=== PATIENT | male | born 1995 | race Caucasian/White ===

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

== ENCOUNTER 2018-06-26 17:41 | Observation (INO) | payer OTHER ==
[2018-06-26 20:19] LABS: ABS Basophils 0 10^3/ul (0-0.2); ABS Eosinophils 0.1 10^3/ul (0-0.6); ABS Monocytes 0.6 10^3/ul (0-0.8); ABS Neutrophils 3.8 10^3/ul (1.5-7.7); ABS Nucleated RBC 0 10^3/ul; Eosinophil % 1.9 %; Hematocrit 47 % (42-52); Hemoglobin 15.8 g/dl (14.0-18.0); Lymphocyte % 30.8 %; Mean Corpuscular HGB Conc 34 g/dl (31-36); Mean Corpuscular Hemoglobin 30 pg (27-31); Mean Corpuscular Volume 90 fL (80-94); Mean Platelet Volume 7.7 fL (7.4-10.4); Nucleated Red Blood Cells % 0; Platelet Count 201 10^3/ul (150-450); Red Blood Count 5.27 10^6/ul (4.00-5.40); Red Cell Distribution Width 13 % (10.5-15); White Blood Count 6.5 10^3/ul (3.5-10.8)
[2018-06-26 20:39] LABS: Albumin/Globulin Ratio 2.1 (1-3); BUN/Creatinine Ratio 20.4 (8-20); C Reactive Protein 1.1 mg/L (<8.01); Calcium 10.1 mg/dL (8.6-10.3); EGFR African American 124.1 (>60); EGFR Non-African American 102.6 (>60); Globulin 2.4 g/dL (2-4); Potassium 4.1 mmol/L (3.5-5.0); Total Bilirubin 0.6 mg/dL (0.2-1.0); Total Protein 7.4 g/dL (6.4-8.9)
[2018-06-26 20:41] LABS: CKMB ng/mL 25.1 ng/mL (0.6-6.3)
[2018-06-26] MEDS ORDERED: NS 0.9% 1000 ML** 1,000 ML IV ONE (21:01)
[2018-06-26 21:38] LABS: Magnesium 2.1 mg/dL (1.9-2.7); Phosphorus 4.4 mg/dL (2.5-5.0)
[2018-06-26 21:47] LABS: Urine Appearance Clear; Urine Bilirubin Negative (Negative); Urine Blood Negative (Negative); Urine Color Yellow; Urine Glucose Negative (Negative); Urine Ketones Negative (Negative); Urine Nitrite Negative (Negative); Urine Protein Negative (Negative); Urine Specific Gravity 1.019 (1.010-1.030); Urine Urobilinogen Negative (Negative)
[2018-06-26 22:05] LABS: Activated Partial Thrombo Time 29.8 seconds (26.0-36.3)
[2018-06-26 22:07] LABS: Barbiturates Urine Screen None Detected (None Detect); Benzodiazepine Urine Screen None Detected (None Detect); Urine Cannabinoids Screen None Detected (None Detect)
--- NOTE | 2018-06-26 22:34 | ED ---
Upper Extremity Pain - HPI Summary HPI Summary: Patient complains of left upper extremity pain and swelling status post work out. Patient states he has history of recent surgeries on left upper extremity has not worked for 2 weeks and started 4 days ago. States pain has been getting worse. Sent by quality review trainer to rule out DVT and rhabdo. Patient denies any other pain injury or symptoms. Pain with extension of left arm and extreme flexion. - History of Current Complaint Chief Complaint: EDExtremityUpper Stated Complaint: LEFT ARM SWELLING/PAIN Time Seen by Provider: 06/26/18 19:16 Hx Obtained From: Patient Mechanism Of Injury: Unknown Onset/Duration: Started Days Ago Timing: Constant Severity Initially: Moderate Severity Currently: Moderate Pain Location: Arm, Elbow Character: Dull, Aching, Throbbing Aggravating Factor(s): Movement, Flexion, Extension Alleviating Factor(s): Nothing Associated Signs & Symptoms: Positive: Swelling. Negative: Weakness, Numbness/ Tingling - Allergies/Home Medications Allergies/Adverse Reactions: Allergies Allergy/AdvReac Type Severity Reaction Status Date / Time NSAIDS (Non-Steroidal Allergy See Comment Verified 06/26/18 18:28 Anti-Inflamma Home Medications: Home Medications NK [No Home Medications Reported] 06/26/18 [History Confirmed 06/26/18] PMH/Surg Hx/FS Hx/Imm Hx Endocrine/Hematology History: Denies: Hx Diabetes Cardiovascular History: Reports: Hx Valvular Heart Disease - bicuspid aortic valve Denies: Hx Hypertension, Hx Pacemaker/ICD History: Denies: Hx Renal Disease Sensory History: Denies: Hx Hearing Aid Opthamlomology History: Denies: Hx Eye Prosthesis Neurological History: Denies: Hx Dementia Psychiatric History: Denies: Hx Panic Disorder - Surgical History Surgery Procedure, Year, and Place: 04/26/17 LT HIP - LABRAL REPAIR Infectious Disease History: No Infectious Disease History: Denies: Traveled Outside the [place] in Last 30 Days - Social History Alcohol Use: None Substance Use Type: Reports: None Smoking Status (MU): Never Smoked Tobacco Review of Systems Constitutional: Negative Eyes: Negative ENT: Negative Cardiovascular: Negative Respiratory: Negative Gastrointestinal: Negative Genitourinary: Negative Musculoskeletal: Other Skin: Negative Neurological: Negative Psychological: Normal All Other Systems Reviewed And Are Negative: Yes Physical Exam - Summary Physical Exam Summary: Flexion and extension intact at fingers, wrist, elbow, shoulder of left upper extremity. Some pain with extension and flexion of left elbow. Left bicep appears swollen, no evidence of ruptured muscle, erythema, ecchymosis, deformity , extra warmth. Pulses present distally. Public Address Announcer strength normal. Cap refill immediate. Triage Information Reviewed: Yes Vital Signs On Initial Exam: Initial Vitals Temp Pulse Resp BP Pulse Ox 97.9 F 66 16 129/78 98 06/26/18 18:23 06/26/18 18:23 06/26/18 18:23 06/26/18 18:23 06/26/18 18:23 Vital Signs Reviewed: Yes Appearance: Positive: Well-Appearing Skin: Positive: Warm Head/Face: Positive: Normal Head/Face Inspection Eyes: Positive: Normal Neck: Positive: Supple Respiratory/Lung Sounds: Positive: Clear to Auscultation Cardiovascular: Positive: Normal Abdomen Description: Positive: Nontender Musculoskeletal: Positive: Normal Neurological: Positive: Normal Psychiatric: Positive: Normal AVPU Assessment: Alert - Josi Coma Scale Best Eye Response: 4 - Spontaneous Best Motor Response: 6 - Obeys Commands Best Verbal Response: 5 - Oriented Coma Scale Total: 15 Diagnostics - Vital Signs Vital Signs Temp Pulse Resp BP Pulse Ox 06/26/18 18:23 97.9 F 66 16 129/78 98 - Laboratory Lab Results: Lab Results 06/26/18 06/26/18 06/26/18 Range/Units 20:12 20:12 21:25 WBC 6.5 (3.5-10.8) 10^3/ul RBC 5.27 (4.00-5.40) 10^6/ul Hgb 15.8 (14.0-18.0) g/dl Hct 47 (42-52) % MCV 90 (80-94) fL MCH 30 (27-31) pg MCHC 34 (31-36) g/dl RDW 13 (10.5-15) % Plt Count 201 (150-450) 10^3/ul MPV 7.7 (7.4-10.4) fL Neut % (Auto) 58.1 % Lymph % (Auto) 30.8 % [place] % (Auto) 8.5 % Eos % (Auto) 1.9 % Baso % (Auto) 0.7 % Absolute Neuts (auto) 3.8 (1.5-7.7) 10^3/ul Absolute Lymphs (auto) 2.0 (1.0-4.8) 10^3/ul Absolute Monos (auto) 0.6 (0-0.8) 10^3/ul Absolute Eos (auto) 0.1 (0-0.6) 10^3/ul Absolute Basos (auto) 0 (0-0.2) 10^3/ul Absolute Nucleated RBC 0 10^3/ul Nucleated RBC % 0 INR (Anticoag Therapy) (0.77-1.02) APTT (26.0-36.3) seconds Sodium 140 (135-145) mmol/L Potassium 4.1 (3.5-5.0) mmol/L Chloride 105 (101-111) mmol/L Carbon Dioxide 30 (22-32) mmol/L Anion Gap 5 (2-11) mmol/L BUN 19 (6-24) mg/dL Creatinine 0.93 (0.67-1.17) mg/dL Est GFR ( Amer) 124.1 (>60) Est GFR (Non-Af Amer) 102.6 (>60) BUN/Creatinine Ratio 20.4 H (8-20) Glucose 82 (70-100) mg/dL Calcium 10.1 (8.6-10.3) mg/dL Phosphorus 4.4 (2.5-5.0) mg/dL Magnesium 2.1 (1.9-2.7) mg/dL Total Bilirubin 0.60 (0.2-1.0) mg/dL AST 392 H (13-39) U/L ALT 146 H (7-52) U/L Alkaline Phosphatase 57 (34-104) U/L Total Creatine Kinase 36758 H (10-223) U/L CK-MB (CK-2) 25.1 H (0.6-6.3) ng/mL C-Reactive Protein 1.10 (<8.01) mg/L Total Protein 7.4 (6.4-8.9) g/dL Albumin 5.0 (3.2-5.2) g/dL Globulin 2.4 (2-4) g/dL Albumin/Globulin Ratio 2.1 (1-3) Urine Color Yellow Urine Appearance Clear Urine pH 6.0 (5-9) Ur Specific Gary 1.019 (1.010-1.030) Urine Protein Negative (Negative) Urine Ketones Negative (Negative) Urine Blood Negative (Negative) Urine Nitrate Negative (Negative) Urine Bilirubin Negative (Negative) Urine Urobilinogen Negative (Negative) Ur Leukocyte Esterase Negative (Negative) Urine Glucose Negative (Negative) Urine Opiates Screen (None Detect) Ur Barbiturates Screen (None Detect) Ur Phencyclidine Scrn (None Detect) Ur Amphetamines Screen (None Detect) U Benzodiazepines Scrn (None Detect) Urine Cocaine Screen (None Detect) U Cannabinoids Screen (None Detect) 06/26/18 06/26/18 Range/Units 21:25 21:51 WBC (3.5-10.8) 10^3/ul RBC (4.00-5.40) 10^6/ul Hgb (14.0-18.0) g/dl Hct (42-52) % MCV (80-94) fL MCH (27-31) pg MCHC (31-36) g/dl RDW (10.5-15) % Plt Count (150-450) 10^3/ul MPV (7.4-10.4) fL Neut % (Auto) % Lymph % (Auto) % [place] % (Auto) % Eos % (Auto) % Baso % (Auto) % Absolute Neuts (auto) (1.5-7.7) 10^3/ul Absolute Lymphs (auto) (1.0-4.8) 10^3/ul Absolute Monos (auto) (0-0.8) 10^3/ul Absolute Eos (auto) (0-0.6) 10^3/ul Absolute Basos (auto) (0-0.2) 10^3/ul Absolute Nucleated RBC 10^3/ul Nucleated RBC % INR (Anticoag Therapy) 1.00 (0.77-1.02) APTT 29.8 (26.0-36.3) seconds Sodium (135-145) mmol/L Potassium (3.5-5.0) mmol/L Chloride (101-111) mmol/L Carbon Dioxide (22-32) mmol/L Anion Gap (2-11) mmol/L BUN (6-24) mg/dL Creatinine (0.67-1.17) mg/dL Est GFR ( Amer) (>60) Est GFR (Non-Af Amer) (>60) BUN/Creatinine Ratio (8-20) Glucose (70-100) mg/dL Calcium (8.6-10.3) mg/dL Phosphorus (2.5-5.0) mg/dL Magnesium (1.9-2.7) mg/dL Total Bilirubin (0.2-1.0) mg/dL AST (13-39) U/L ALT (7-52) U/L Alkaline Phosphatase (34-104) U/L Total Creatine Kinase (10-223) U/L CK-MB (CK-2) (0.6-6.3) ng/mL C-Reactive Protein (<8.01) mg/L Total Protein (6.4-8.9) g/dL Albumin (3.2-5.2) g/dL Globulin (2-4) g/dL Albumin/Globulin Ratio (1-3) Urine Color Urine Appearance Urine pH (5-9) Ur Specific Gary (1.010-1.030) Urine Protein (Negative) Urine Ketones (Negative) Urine Blood (Negative) Urine Nitrate (Negative) Urine Bilirubin (Negative) Urine Urobilinogen (Negative) Ur Leukocyte Esterase (Negative) Urine Glucose (Negative) Urine Opiates Screen None detected (None Detect) Ur Barbiturates Screen None detected (None Detect) Ur Phencyclidine Scrn None detected (None Detect) Ur Amphetamines Screen None detected (None Detect) U Benzodiazepines Scrn None detected (None Detect) Urine Cocaine Screen None detected (None Detect) U Cannabinoids Screen None detected (None Detect) Result Diagrams: 06/26/18 20:12 06/26/18 20:12 Lab Statement: Any lab studies that have been ordered have been reviewed, and results considered in the medical decision making process. Course/Dx - Course Course Of Treatment: Patient complains of left upper extremity pain and swelling status post work out. Patient states he has history of recent surgeries on left upper extremity has not worked for 2 weeks and started 4 days ago. States pain has been getting worse. Sent by quality review trainer to rule out DVT and rhabdo. Patient denies any other pain injury or symptoms. Pain with extension of left arm and extreme flexion. Physical exam:Flexion and extension intact at fingers, wrist, elbow, shoulder of left upper extremity. Some pain with extension and flexion of left elbow. Left bicep appears swollen, no evidence of ruptured muscle, erythema, ecchymosis, deformity, extra warmth. Pulses present distally. Public Address Announcer strength normal. Cap refill immediate. Vital signs within normal limits. Total CK 26,000 related elevated LFTs. CK-MB 25. GFR 12. Labs otherwise unremarkable. EKG unremarkable. Ultrasound negative for DVT. Patient given 1 liter normal saline. Admitted to hospitalist. - Diagnoses Provider Diagnoses: Rhabdomyolysis Discharge - Sign-Out/Discharge Documenting (check all that apply): Patient Departure Patient Received Moderate/Deep Sedation with Procedure: No - Discharge Plan Condition: Stable Disposition: ADMITTED TO [facility] - Billing Disposition and Condition Condition: STABLE Disposition: Admitted to [facility]
[2018-06-26] MEDS ORDERED: Acetaminophen TAB* 325 MG PO PRN (22:36)
--- NOTE | 2018-06-26 23:30 | ADMNOTE ---
Subjective Date of Service: 06/26/18 Interval History: ADMISSION HISTORY AND PHYSICAL PCP: Francy Sosa NP, [facility] CC: left arm pain HPI: Patient is healthy [place] Student, who lifted weights in gym 4 days [employer] on . He initially felt some normal muscle soreness in both arms, but 2 days later the pain in the left elbow/popliteal area worsened, and was associated with swelling of biceps and proximal LT forearm. He cannot fully extend LT elbow. Has had nothing similar in past. 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, on soccer team, no tobacco, occasional alcohol, no drugs, has girlfriend, no children Past Medical History: Findings - bicuspid aortic valve, h/o acute renal failure due to NSAIDs Review of Systems - Measurements Intake and Output: Intake and Output Last 24 Hours 06/24/18 06/25/18 06/26/18 06/27/18 06:59 06:59 06:59 06:59 Intake Total 1000 Balance 1000 Weight 68.039 kg Intake: IV Fluids 1000 - Review of Systems General Comments: good historian Constitutional Symptoms: Negative: Weight Loss, Fatigue, Fever Dermatology: Positive: Normal HEENT: Positive: Normal Eyes: Positive: Normal Thyroid: Positive: Normal Pulmonary: Positive: Normal Cardiology: Positive: Normal Gastroenterology: Positive: Normal Genital - Urinary: Positive: Normal Musculoskeletal: Positive: Joint Pain Endocrinology: Positive: Normal Neurology: Positive: Normal Psychiatry: Positive: Normal Objective Active Medications: Home meds: None Vital Signs - 8 hr 06/26/18 06/26/18 18:23 22:57 Temperature 36.6 C Pulse Rate 66 58 Respiratory 16 18 Rate Blood Pressure 129/78 137/71 (mmHg) O2 Sat by Pulse 98 98 Oximetry Oxygen Devices in Use Now: None Appearance: alert, no distress Eyes: No Scleral Icterus Ears/Nose/Mouth/Throat: NL Teeth, Lips, Gums Neck: NL Appearance and Movements; NL JVP Respiratory: Symmetrical Chest Expansion and Respiratory Effort Cardiovascular: NL Sounds; No Murmurs; No JVD Abdominal: NL Sounds; No Tenderness; No Distention Lymphatic: No Cervical Adenopathy Extremities: No Clubbing, Cyanosis, - - LT biceps firm, edematous, non-tender, proximal LT forearm also w/ non-pitting edema, ROM LT elbow from 40 to 165 degrees, cannot fully extend Skin: No Rash or Ulcers Neurological: Alert and Oriented x 3 Lines/Tubes/Other Access: Clean, Dry and Intact Peripheral IV Result Diagrams: 06/26/18 20:12 06/26/18 20:12 Additional Lab and Data: Laboratory Tests 06/26/18 06/26/18 20:12 21:51 INR (Anticoag Therapy) 1.00 APTT 29.8 Calcium 10.1 Phosphorus 4.4 Magnesium 2.1 Total Bilirubin 0.60 AST 392 H ALT 146 H Total Creatine Kinase 30844 H CK-MB (CK-2) 25.1 H C-Reactive Protein 1.10 Total Protein 7.4 Diagnostic Imaging: venous doppler LUE: no DVT Assess/Plan/Problems-Billing Assessment: 23 year old man w/ acute rhabdomyolysis focally in LT biceps, popliteal area. - Patient Problems (1) Rhabdomyolysis Current Visit: Yes Status: Acute Priority: Medium Code(s): M62.82 - RHABDOMYOLYSIS SNOMED Code(s): 462500727 Comment: -unusual to have focal rhabdo. Suspect localized muscle tear in long head biceps. -will have intravenous fluid, recheck creatinine and CK in AM (2) Biceps muscle tear Current Visit: Yes Status: Acute Priority: Medium Code(s): S46.219A - STRAIN OF MUSC/FASC/TEND PRT BICEPS, UNSP ARM, INIT SNOMED Code(s): 668124805 Comment: -Suspect tear, will have MRI of LT elbow today -Will ask for orthopedics input depending on MRI results Status and Disposition: observation
[2018-06-27] MEDS: NS 0.9% 1000 ML** 1,000 ML IV SCH ×6 (00:26→20:43)
[2018-06-27 08:04] LABS: BUN/Creatinine Ratio 18.6 (8-20); Calcium 8.7 mg/dL (8.6-10.3); EGFR African American 111.6 (>60); EGFR Non-African American 92.2 (>60); Potassium 4.2 mmol/L (3.5-5.0)
--- NOTE | 2018-06-27 10:23 | PN ---
Subjective Date of Service: 06/27/18 Interval History: Some pain and swelling in the left anterior cubital fossa. Denies SOB on the IVF CK fell from 26K to 25K Family History: Findings - Mother and father well, 3 sisters well Social History: Findings - [employer] student, on soccer team, no tobacco, occasional alcohol, no drugs, has girlfriend, no children Past Medical History: Findings - bicuspid aortic valve, h/o acute renal failure due to NSAIDs Objective Active Medications: Acetaminophen (Tylenol Tab*) 650 mg PO Q4H PRN PRN Reason: FEVER/HEADACHE Sodium Chloride (Ns 0.9% 1000 Ml) 1,000 mls @ 250 mls/hr IV PER RATE SILVIANO Last Admin: 06/27/18 08:18 Dose: 250 mls/hr Vital Signs - 8 hr 06/27/18 06/27/18 03:19 09:25 Temperature 97.4 F 97.5 F Pulse Rate 58 60 Respiratory 16 16 Rate Blood Pressure 94/46 103/58 (mmHg) O2 Sat by Pulse 99 99 Oximetry Oxygen Devices in Use Now: None Appearance: NAD Eyes: No Scleral Icterus Ears/Nose/Mouth/Throat: NL Teeth, Lips, Gums Respiratory: Symmetrical Chest Expansion and Respiratory Effort, Clear to Auscultation Abdominal: NL Sounds; No Tenderness; No Distention, No Hepatosplenomegaly Extremities: No Edema, No Clubbing, Cyanosis, - - left bicep swollen, able to mostly extend Skin: No Rash or Ulcers Neurological: Alert and Oriented x 3, NL Sensation, NL Muscle Strength and Tone Result Diagrams: 06/26/18 20:12 06/27/18 07:25 Additional Lab and Data: Laboratory Results - last 24 hr 06/26/18 06/26/18 06/26/18 20:12 20:12 21:25 WBC 6.5 RBC 5.27 Hgb 15.8 Hct 47 MCV 90 MCH 30 MCHC 34 RDW 13 Plt Count 201 MPV 7.7 Neut % (Auto) 58.1 Lymph % (Auto) 30.8 [place] % (Auto) 8.5 Eos % (Auto) 1.9 Baso % (Auto) 0.7 Absolute Neuts (auto) 3.8 Absolute Lymphs (auto) 2.0 Absolute Monos (auto) 0.6 Absolute Eos (auto) 0.1 Absolute Basos (auto) 0 Absolute Nucleated RBC 0 Nucleated RBC % 0 INR (Anticoag Therapy) APTT Sodium 140 Potassium 4.1 Chloride 105 Carbon Dioxide 30 Anion Gap 5 BUN 19 Creatinine 0.93 Est GFR ( Amer) 124.1 Est GFR (Non-Af Amer) 102.6 BUN/Creatinine Ratio 20.4 H Glucose 82 Calcium 10.1 Phosphorus 4.4 Magnesium 2.1 Total Bilirubin 0.60 AST 392 H ALT 146 H Alkaline Phosphatase 57 Total Creatine Kinase 56964 H CK-MB (CK-2) 25.1 H C-Reactive Protein 1.10 Total Protein 7.4 Albumin 5.0 Globulin 2.4 Albumin/Globulin Ratio 2.1 Urine Color Yellow Urine Appearance Clear Urine pH 6.[address] [place] 1.019 Urine Protein Negative Urine Ketones Negative Urine Blood Negative Urine Nitrate Negative Urine Bilirubin Negative Urine Urobilinogen Negative Ur Leukocyte Esterase Negative Urine Glucose Negative Urine Opiates Screen Ur Barbiturates Screen Ur Phencyclidine Scrn Ur Amphetamines Screen U Benzodiazepines Scrn Urine Cocaine Screen U Cannabinoids Screen 06/26/18 06/26/18 06/27/18 21:25 21:51 07:25 WBC RBC Hgb Hct MCV MCH MCHC RDW Plt Count MPV Neut % (Auto) Lymph % (Auto) [place] % (Auto) Eos % (Auto) Baso % (Auto) Absolute Neuts (auto) Absolute Lymphs (auto) Absolute Monos (auto) Absolute Eos (auto) Absolute Basos (auto) Absolute Nucleated RBC Nucleated RBC % INR (Anticoag Therapy) 1.00 APTT 29.8 Sodium 142 Potassium 4.2 Chloride 112 H Carbon Dioxide 25 Anion Gap 5 BUN 19 Creatinine 1.02 Est GFR ( Amer) 111.6 Est GFR (Non-Af Amer) 92.2 BUN/Creatinine Ratio 18.6 Glucose 84 Calcium 8.7 Phosphorus Magnesium Total Bilirubin AST ALT Alkaline Phosphatase Total Creatine Kinase 95456 H CK-MB (CK-2) C-Reactive Protein Total Protein Albumin Globulin Albumin/Globulin Ratio Urine Color Urine Appearance Urine pH Ur Specific [place] Urine Protein Urine Ketones Urine Blood Urine Nitrate Urine Bilirubin Urine Urobilinogen Ur Leukocyte Esterase Urine Glucose Urine Opiates Screen None detected Ur Barbiturates Screen None detected Ur Phencyclidine Scrn None detected Ur Amphetamines Screen None detected U Benzodiazepines Scrn None detected Urine Cocaine Screen None detected U Cannabinoids Screen None detected Diagnostic Imaging: venous doppler LUE: no DVT Assess/Plan/Problems-Billing Assessment: 23 year old man w/ acute rhabdomyolysis after bicep curl workout, swelling focally in LT biceps, popliteal area. - Patient Problems (1) Rhabdomyolysis Current Visit: Yes Status: Acute Priority: Medium Code(s): M62.82 - RHABDOMYOLYSIS SNOMED Code(s): 842210072 Comment: - aggressive intravenous fluid - check CK q12, BMP daily. - QUALITY PROCESS LEAD stable (hx of ATN vs AIN on NSAIDS) (2) Biceps muscle tear Current Visit: Yes Status: Acute Priority: Medium Code(s): S46.219A - STRAIN OF MUSC/FASC/TEND PRT BICEPS, UNSP ARM, INIT SNOMED Code(s): 862059101 Comment: -will have MRI of LT elbow today -Will ask for orthopedics input depending on MRI results (3) Full code status Current Visit: No Status: Acute Code(s): Z78.9 - OTHER SPECIFIED HEALTH STATUS SNOMED Code(s): 871112876 Status and Disposition: medicine likely will need another 24-48 hours of aggressive IVF hydration. Goal CK <5K
[2018-06-28] MEDS: NS 0.9% 1000 ML** 1,000 ML IV SCH ×4 (00:24→14:41)
--- NOTE | 2018-06-28 10:45 | DCNOTE ---
Subjective Date of Service: 06/28/18 Interval History: Pain L biceps better, doesn't need analgesics. No new c/o. Never had dark urine. Family History: Findings - Mother and father well, 3 sisters well Social History: Findings - [employer] student, on soccer team, no tobacco, occasional alcohol, no drugs, has girlfriend, no children Past Medical History: Findings - bicuspid aortic valve, h/o acute renal failure due to NSAIDs Objective Active Medications: Acetaminophen (Tylenol Tab*) 650 mg PO Q4H PRN PRN Reason: FEVER/HEADACHE Sodium Chloride (Ns 0.9% 1000 Ml) 1,000 mls @ 75 mls/hr IV PER RATE SILVIANO Vital Signs - 8 hr 06/28/18 07:39 Temperature 97.4 F Pulse Rate 43 Respiratory 16 Rate Blood Pressure 111/63 (mmHg) O2 Sat by Pulse 100 Oximetry Oxygen Devices in Use Now: None Appearance: Alert, partly up in bed. In good spirits. Looks comfortable. Eyes: No Scleral Icterus Extremities: No Edema, No Clubbing, Cyanosis, - - Left biceps sl swollen, not tender or warm. Skin: No Rash or Ulcers, No Nodules or Sclerosis, - Neurological: Alert and Oriented x 3, NL Sensation Result Diagrams: 06/26/18 20:12 06/28/18 15:06 Additional Lab and Data: Laboratory Results - last 24 hr 06/26/18 06/26/18 06/26/18 20:12 20:12 21:25 WBC 6.5 RBC 5.27 Hgb 15.8 Hct 47 MCV 90 MCH 30 MCHC 34 RDW 13 Plt Count 201 MPV 7.7 Neut % (Auto) 58.1 Lymph % (Auto) 30.8 [place] % (Auto) 8.5 Eos % (Auto) 1.9 Baso % (Auto) 0.7 Absolute Neuts (auto) 3.8 Absolute Lymphs (auto) 2.0 Absolute Monos (auto) 0.6 Absolute Eos (auto) 0.1 Absolute Basos (auto) 0 Absolute Nucleated RBC 0 Nucleated RBC % 0 INR (Anticoag Therapy) APTT Sodium 140 Potassium 4.1 Chloride 105 Carbon Dioxide 30 Anion Gap 5 BUN 19 Creatinine 0.93 Est GFR ( Amer) 124.1 Est GFR (Non-Af Amer) 102.6 BUN/Creatinine Ratio 20.4 H Glucose 82 Calcium 10.1 Phosphorus 4.4 Magnesium 2.1 Total Bilirubin 0.60 AST 392 H ALT 146 H Alkaline Phosphatase 57 Total Creatine Kinase 57219 H CK-MB (CK-2) 25.1 H C-Reactive Protein 1.10 Total Protein 7.4 Albumin 5.0 Globulin 2.4 Albumin/Globulin Ratio 2.1 Urine Color Yellow Urine Appearance Clear Urine pH 6.0 Ur Specific [place] 1.019 Urine Protein Negative Urine Ketones Negative Urine Blood Negative Urine Nitrate Negative Urine Bilirubin Negative Urine Urobilinogen Negative Ur Leukocyte Esterase Negative Urine Glucose Negative Urine Opiates Screen Ur Barbiturates Screen Ur Phencyclidine Scrn Ur Amphetamines Screen U Benzodiazepines Scrn Urine Cocaine Screen U Cannabinoids Screen 06/26/18 06/26/18 06/27/18 21:25 21:51 07:25 WBC RBC Hgb Hct MCV MCH MCHC RDW Plt Count MPV Neut % (Auto) Lymph % (Auto) [place] % (Auto) Eos % (Auto) Baso % (Auto) Absolute Neuts (auto) Absolute Lymphs (auto) Absolute Monos (auto) Absolute Eos (auto) Absolute Basos (auto) Absolute Nucleated RBC Nucleated RBC % INR (Anticoag Therapy) 1.00 APTT 29.8 Sodium 142 Potassium 4.2 Chloride 112 H Carbon Dioxide 25 Anion Gap 5 BUN 19 Creatinine 1.02 Est GFR ( Amer) 111.6 Est GFR (Non-Af Amer) 92.2 BUN/Creatinine Ratio 18.6 Glucose 84 Calcium 8.7 Phosphorus Magnesium Total Bilirubin AST ALT Alkaline Phosphatase Total Creatine Kinase 01982 H CK-MB (CK-2) C-Reactive Protein Total Protein Albumin Globulin Albumin/Globulin Ratio Urine Color Urine Appearance Urine pH Ur Specific [place] Urine Protein Urine Ketones Urine Blood Urine Nitrate Urine Bilirubin Urine Urobilinogen Ur Leukocyte Esterase Urine Glucose Urine Opiates Screen None detected Ur Barbiturates Screen None detected Ur Phencyclidine Scrn None detected Ur Amphetamines Screen None detected U Benzodiazepines Scrn None detected Urine Cocaine Screen None detected U Cannabinoids Screen None detected Diagnostic Imaging: venous doppler LUE: no DVT Assess/Plan/Problems-Billing Assessment: 23 year old man w/ acute rhabdomyolysis after bicep curl workout, swelling focally in LT biceps, popliteal area. - Patient Problems (1) Rhabdomyolysis Current Visit: Yes Status: Acute Priority: Medium Code(s): M62.82 - RHABDOMYOLYSIS SNOMED Code(s): 786265865 Comment: Due to strenuous exercise (curls) after a period of inactivity following skiing injury to L and AC joints. Creatinine 0.83 and CK 9771 at 3 :06 PM 06/28, will [facility] Status and Disposition: medicine likely will need another 24-48 hours of aggressive IVF hydration. Goal CK <5K
[2018-06-28 16:00] LABS: BUN/Creatinine Ratio 9.6 (8-20); EGFR African American 141.5 (>60); Potassium 3.8 mmol/L (3.5-5.0)
[2018-06-29] MEDS: NS 0.9% 1000 ML** 1,000 ML IV SCH (04:19)
[2018-06-29 09:28] VITALS: BP 108/55
--- NOTE | 2018-06-29 09:31 | DS ---
DISCHARGE SUMMARY: DATE OF ADMISSION: DATE OF DISCHARGE: 06/29/18 HISTORY OF PRESENT ILLNESS: This 23-year-old man presented with left arm pain. He is a member of the soccer team. He was doing curls with both arms. He is right handed. He had a skiing accident sometime this season. He hurt his left clavicle and AC joint. He had not really done much exercise of his left arm at all until 2 days before admission, he did many curls and then 2 days later, his left arm was quite sore. He was found to have a markedly elevated CK of 25,943. He was admitted for intravenous fluids and observation. His left arm pain gradually improved, although it has not gone by the time of his admission. On the day of discharge, his CK had fallen to 5839. His renal function was preserved. His creatinine on 06/28/18 was 0.83. FINAL DIAGNOSIS: Rhabdomyolysis due to exertion. DISCHARGE MEDICATIONS: Acetaminophen 650 mg every 4 hours p.r.n. DISPOSITION: Discharged home. CONDITION ON DISCHARGE: Improved. Patient will follow up as needed with the [facility]. [id number]/[facility] #: [id number] AVTAR
== END 2018-06-29 09:55 | disposition home or self-care (01) ==
LOC: ED 17:41 → MED 22:33
PROVIDERS: ADMIT Internal Medicine; ATTEND Internal Medicine
DX: M62.82 Rhabdomyolysis (principal); S46.219A Strain of muscle, fascia and tendon of other parts of biceps, unspecified arm, initial encounter; M79.602 Pain in left arm; I35.9 Nonrheumatic aortic valve disorder, unspecified
CPT/HCPCS: 36415; 80048; 80053; 80307; 81003; 82550; 82553; 83735; 84100; 85025; 85610; 85730; 86140; 93005; 96360; 96361; 99284; G0378

== ENCOUNTER 2019-03-21 13:34 | Emergency (ER) | payer OTHER ==
[2019-03-21] MEDS ORDERED: Acetaminophen ADULT LIQ* 650 MG/20.3 ML UDC PO ONE (15:06)
[2019-03-21 15:07] LABS: ABS Basophils 0.1 10^3/ul (0-0.2); ABS Lymphocytes 3.4 10^3/ul (1.0-4.8); ABS Monocytes 1.5 10^3/ul (0-0.8); ABS Neutrophils 6.4 10^3/ul (1.5-7.7); Eosinophil % 0.2 %; Hematocrit 46 % (42-52); Hemoglobin 15.3 g/dL (14.0-18.0); Mean Corpuscular HGB Conc 34 g/dL (31-36); Mean Corpuscular Hemoglobin 30 pg (27-31); Mean Corpuscular Volume 90 fL (80-94); Mean Platelet Volume 7.2 fL (7.4-10.4); Nucleated Red Blood Cells % 0.3; Platelet Count 217 10^3/uL (150-450); Red Blood Count 5.07 10^6 /uL (4.18-5.48); Red Cell Distribution Width 13 % (10-15); White Blood Count 11.4 10^3/uL (3.5-10.8)
[2019-03-21 15:23] LABS: Albumin 4.4 g/dL (3.2-5.2); Albumin/Globulin Ratio 1.2 (1-3); BUN/Creatinine Ratio 22.8 (8-20); Calcium 9.9 mg/dL (8.6-10.3); EGFR African American 97.2 (>60); EGFR Non-African American 80.3 (>60); Globulin 3.8 g/dL (2-4); Potassium 4.9 mmol/L (3.5-5.0); Total Bilirubin 0.9 mg/dL (0.2-1.0); Total Protein 8.2 g/dL (6.4-8.9)
[2019-03-21] MEDS ORDERED: NS 0.9% IV ONE (16:27)
[2019-03-21] MEDS ORDERED: Lidocaine 2% VISCOUS* 15 ML UDC PO ONE (16:27)
[2019-03-21] MEDS ORDERED: diPHENhydraMINE LIQ* 12.5 MG/5 ML UDC PO ONE (16:28)
[2019-03-21] MEDS ORDERED: Al Hydrox/Mg Hydrox/Simet LIQ* 30 ML UDC PO ONE (16:28)
--- NOTE | 2019-03-21 16:45 | ED ---
Throat Pain/Nasal Congestion - HPI Summary HPI Summary: 24 year old M presenting to [facility] accompanied by seeing eye dog trainer complains of worsening sore throat rated 9/10 in severity x4 days. Patient was seen yesterday 03/20 at [facility] and diagnosed with mononucleosis via positive mono spot per seeing eye dog trainer. Patient was also tested for strep at [facility] which was negative. Per seeing eye dog trainer, patient takes prednisone for back pain and was not given any prednisone at [facility]. technology trainer reports patient has had difficulty drinking and eating d/t sore throat. Patient states he has been gurgling with salt water. Today 03/21, patient developed fever and headache. No change in skin or eye color, vomiting, abdominal pain. Symptoms aggravated by nothing. Symptoms alleviated by nothing. - History of Current Complaint Chief Complaint: EDFever Time Seen by Provider: 03/21/19 16:08 Hx Obtained From: Patient, Other: - technology trainer Onset/Duration: Lasting Days - 4, Still Present Severity: Severe - 01/16 - Allergies/Home Medications Allergies/Adverse Reactions: Allergies Allergy/AdvReac Type Severity Reaction Status Date / Time NSAIDS (Non-Steroidal Allergy See Comment Verified 03/21/19 13:41 Anti-Inflamma Home Medications: Home Medications Escitalopram * [Lexapro 5 mg (NF)] 5 mg PO DAILY 03/21/19 [History Confirmed ] Gabapentin CAP(*) [Neurontin 300 CAP(*)] 300 mg PO BID 03/21/19 [History Confirmed 03/21/19] Lidocaine PATCH 5%* [Lidoderm 5% Patch*] 3 patch TRANSDERM DAILY 03/21/19 [ History Confirmed 03/21/19] Penicillin VK 500 MG TAB(NF) [Penicillin VK 500 mg Tab] 500 mg PO BID 03/21/19 [ History Confirmed 03/21/19] predniSONE TAB* [Deltasone 10 MG TAB*] 25 mg PO DAILY 03/21/19 [History Confirmed 03/21/19] PMH/Surg Hx/FS Hx/Imm Hx Endocrine/Hematology History: Denies: Hx Diabetes Cardiovascular History: Reports: Hx Valvular Heart Disease - bicuspid aortic valve Denies: Hx Hypertension, Hx Pacemaker/ICD History: Denies: Hx Renal Disease Sensory History: Denies: Hx Contacts or Glasses, Hx Eye Prosthesis, Hx Hearing Aid Opthamlomology History: Denies: Hx Contacts or Glasses, Hx Eye Prosthesis Neurological History: Denies: Hx Dementia Psychiatric History: Denies: Hx Panic Disorder - Surgical History Surgery Procedure, Year, and Place: 04/26/17 LT HIP - LABRAL REPAIR Infectious Disease History: No Infectious Disease History: Denies: Traveled Outside the [place] in Last 30 Days - Family History Known Family History: Negative: Cardiac Disease - Social History Alcohol Use: None Substance Use Type: Reports: None Smoking Status (MU): Never Smoked Tobacco Review of Systems Positive: Fever Negative: Other - no change in eye color Positive: Sore Throat Negative: Abdominal Pain, Vomiting Negative: Other - no change in skin color Positive: Headache All Other Systems Reviewed And Are Negative: Yes Physical Exam - Summary Physical Exam Summary: Constitutional: Well-developed, Well-nourished, Alert. (-) Distressed Skin: Warm, Dry HENT: Atraumatic, diffuse erythema and edema of the posterior oral pharynx, no lymphadenopathy Eyes: Conjunctiva normal Neck: Musculoskeletal ROM normal neck. (-) JVD, (-) Stridor, (-) Tracheal deviation Cardio: Rhythm regular, rate normal, Heart sounds normal; Intact distal pulses; The pedal pulses are 2+ and symmetric. Radial pulses are 2+ and symmetric. (-) Murmur Pulmonary/Chest wall: Effort normal. (-) Respiratory distress, (-) Wheezes, (-) Rales Abd: Soft, (-) tenderness, (-) Distension, (-) Guarding, (-) Rebound Musculoskeletal: (-) Edema Lymph: (-) Cervical adenopathy Neuro: Alert, Oriented x3, no meningismus Psych: Mood and affect Normal Triage Information Reviewed: Yes Vital Signs On Initial Exam: Initial Vitals Temp Pulse Resp BP Pulse Ox 101.8 F 104 19 117/82 97 03/21/19 13:38 03/21/19 13:38 03/21/19 13:38 03/21/19 13:38 03/21/19 13:38 Vital Signs Reviewed: Yes ENT: Positive: Pharyngeal erythema - diffuse erythema of posterior oral pharynx , Other - edema of posterior oral pharynx Procedures - Sedation Patient Received Moderate/Deep Sedation with Procedure: No Diagnostics - Vital Signs Vital Signs Temp Pulse Resp BP Pulse Ox 11/13/19 16:12 99.2 F 03/21/19 15:04 101.2 F 102 19 120/73 97 03/21/19 13:38 101.8 F 104 19 117/82 97 - Laboratory Lab Results: Lab Results 03/21/19 03/21/19 Range/Units 14:56 14:56 WBC 11.4 H (3.5-10.8) 10^3/uL RBC 5.07 (4.18-5.48) 10^6 /uL Hgb 15.3 (14.0-18.0) g/dL Hct 46 (42-52) % MCV 90 (80-94) fL MCH 30 (27-31) pg MCHC 34 (31-36) g/dL RDW 13 (10-15) % Plt Count 217 (150-450) 10^3/uL MPV 7.2 L (7.4-10.4) fL Neut % (Auto) 55.9 % Lymph % (Auto) 30.0 % [place] % (Auto) 13.1 % Eos % (Auto) 0.2 % Baso % (Auto) 0.8 % Absolute Neuts (auto) 6.4 (1.5-7.7) 10^3/ul Absolute Lymphs (auto) 3.4 (1.0-4.8) 10^3/ul Absolute Monos (auto) 1.5 H (0-0.8) 10^3/ul Absolute Eos (auto) 0.0 (0-0.6) 10^3/ul Absolute Basos (auto) 0.1 (0-0.2) 10^3/ul Absolute Nucleated RBC 0.0 10^3/ul Nucleated RBC % 0.3 Sodium 137 (135-145) mmol/L Potassium 4.9 (3.5-5.0) mmol/L Chloride 100 L (101-111) mmol/L Carbon Dioxide 28 (22-32) mmol/L Anion Gap 9 (2-11) mmol/L BUN 26 H (6-24) mg/dL Creatinine 1.14 (0.67-1.17) mg/dL Est GFR ( Amer) 97.2 (>60) Est GFR (Non-Af Amer) 80.3 (>60) BUN/Creatinine Ratio 22.8 H (8-20) Glucose 108 H (70-100) mg/dL Calcium 9.9 (8.6-10.3) mg/dL Total Bilirubin 0.90 (0.2-1.0) mg/dL AST 15 (13-39) U/L ALT 40 (7-52) U/L Alkaline Phosphatase 98 (34-104) U/L Total Protein 8.2 (6.4-8.9) g/dL Albumin 4.4 (3.2-5.2) g/dL Globulin 3.8 (2-4) g/dL Albumin/Globulin Ratio 1.2 (1-3) Result Diagrams: 03/21/19 14:56 03/21/19 14:56 Lab Statement: Any lab studies that have been ordered have been reviewed, and results considered in the medical decision making process. Re-Evaluation - Re-Evaluation First Eval Re-Evaluation Time: 18:15 Change: Improved - patient is feeling better and voice is normal now EENT Course/Dx - Course Course Of Treatment: 24 year old M complains of worsening sore throat x4 days. Patient was seen yesterday 03/20 at [facility] and diagnosed with mononucleosis via positive mono spot per seeing eye dog trainer. Patient was also tested for strep at [facility] which was negative. technology trainer reports patient has had difficulty drinking and eating d/t sore throat. Today , patient developed headache. Physical exam findings: difffuse erythema and edema of the posterior oral pharynx, no lymphadenopathy, no meningismus. In the ED course, the patient was given Tylenol 650 mg PO, Maalox 30 mL PO, Benadryl 12.5 mg PO, lidocaine 15 mL PO, normal saline fluids 1 L IV. After medications, patient is feeling better and voice is normal. Patient was diagnosed with pharyngitis and mononucleosis. Patient will be discharged home with prescription for Tylenol 650 mg PO and xylocaine 2% Viscous 15 mL. He was advised to 1. Gargle with a combination of 1/2 cup warm water mixed with 1/16th cup Hydrogen peroxide and salt. 2. Use the Lidocaine mix before meals and at bedtime. 3. Take Tylenol for pain, not to exceed 4 grams/day. 4. No contact sports. 5. Follow-up outpatient with primary care doctor. Patient was instructed to return to Emergency Department for new or worsening symptoms. Patient understands and is agreeable to this plan. - Diagnoses Provider Diagnoses: Pharyngitis, Mononucleosis Discharge ED - Sign-Out/Discharge Documenting (check all that apply): Patient Departure - Discharge - Discharge Plan Condition: Stable Disposition: HOME Prescriptions: Acetaminophen ADULT LIQ* [Tylenol ADULT LIQ*] 650 mg PO Q4H PRN #200 ml PRN Reason: Pain - Mild Acetaminophen ADULT LIQ* [Tylenol ADULT LIQ*] 650 mg PO Q4H PRN #200 mg PRN Reason: Sore Throat Acetaminophen ADULT LIQ* [Tylenol ADULT LIQ*] 650 mg PO Q4H PRN #200 mg PRN Reason: Pain - Mild Lidocaine 2% VISCOUS* [Xylocaine 2% Viscous*] 15 ml SWISH SPIT Q4H PRN #1 btl MDD 60mL PRN Reason: Sore Throat Lidocaine 2% VISCOUS* [Xylocaine 2% Viscous*] 15 ml SWISH SPIT Q4H PRN #1 btl PRN Reason: Sore Throat Patient Education Materials: Mononucleosis (ED), Pharyngitis (ED) Print Language: MACEDONIAN [facility] - Additional Instructions: 1. Gargle with a combination of 1/2 cup warm water mixed with 1/16th cup Hydrogen peroxide and salt. 2. Use the Lidocaine mix before meals and at bedtime. 3. Take Tylenol for pain, not to exceed 4 grams/day. 4. No contact sports. 5. Follow-up outpatient with your primary care doctor. - Billing Disposition and Condition Condition: STABLE Disposition: Home - Attestation Statements Document Initiated by Danaibe: Yes Documenting Scribe: Silvia Ely Provider For Whom Chinyere is Documenting (Include Credential): Zarina Posadas MD Scribe Attestation: I, Silvia Ely, scribed for Zarina Farooq MD on at [phone]. Scribe Documentation Reviewed: Yes Provider Attestation: The documentation as recorded by the scribe, Silvia Ely accurately reflects the service I personally performed and the decisions made by me, Zarina Farooq MD Status of Scribe Document: Viewed
[2019-03-21 18:55] VITALS: BP 108/67
== END 2019-03-21 18:35 | disposition home or self-care (01) ==
LOC: ED 13:34
DX: B27.90 Infectious mononucleosis, unspecified without complication (principal); J02.9 Acute pharyngitis, unspecified; I35.8 Other nonrheumatic aortic valve disorders; Z88.6 Allergy status to analgesic agent
CPT/HCPCS: 36415; 80053; 85025; 96360; 96361; 99283; A9270-GY